=== PATIENT | male | born 1950 ===

== ENCOUNTER 2020-11-09 09:01 | Inpatient (IN) | payer MEDICARE ==
[~2020-11-09] VITALS: Ht 177.8 cm; Wt 104.1 kg
[2020-11-27] VITALS (12 sets, daily range): BP systolic 94–152; BP diastolic 61–86; PULSE 71–97; TEMP 97.3–98.5
[2020-11-27] MEDS ORDERED: FLOMAX 0.40.4 MG/CAP PO ×2 (05:49→13:11)
[2020-11-27] MEDS ORDERED: AZOR 5 MG-40 MG1 TAB PO (05:49)
[2020-11-27] MEDS ORDERED: TENORMIN 5050 MG/TAB PO (05:49)
--- NOTE | 2020-11-27 06:15 | NUR ---
Patient arrived to [facility] for admission at 0530. He is alert and oriented. His procedure is confirmed. He denies any questions and verbalizes understanding. [facility] is contacted regarding COVID-19 test result and the result is faxed and placed on our chart, reading COVID NOT DETECTED from 11/23/20. Patient changes to his gown independently. He is given a warm blanket for comfort. PIV is started in his left wrist, #18 gauge, x1 attempt, no complications. A type and screen re-type is drawn and lab collects the specimen. Pre-op medications are scanned and given. Breath sounds are clear bilaterally to auscultation. Clear S1S2 heart tones are heard with regular rate noted. PERRLA noted, +2 pupils bilaterally. Equal principal consulting engineer strength bilaterally. +2 radial pulses bilaterally. He denies any pain, numbness, or tingling. Call light usage is taught and within reach.
[2020-11-27] MEDS ORDERED: PRILOSEC 20MG20 MG PO (13:11)
--- NOTE | 2020-11-27 19:00 | NUR ---
Pt currently back in bed. Pt ambulated down the [address]. Pt stated that he has been able to pass a little gas. Pt has his call light within reach.
--- NOTE | 2020-11-27 19:21 | NUR ---
Patient up in chair, He ambulated halls. Urine output improving. was notifed x2 today. Fluid bolus had been ordered & given. Patient main complaint today has been his right eye feeling scratch, he reports that pain has improved, aware. Estrada drain with minimal output. He has tolerated clears without nausea. Eras protocol followed. Bedside report to Fara
[2020-11-28 00:44] VITALS: BP 112/67; PULSE 72; TEMP 97.8
--- NOTE | 2020-11-28 01:00 | NUR ---
Pt is currently sleeping in bed. Pt did wake up when it was time for him to take his scheduled medications. Pt urine out put has improved. Pt has his call light within reach and his bed is in lowest position.
[2020-11-28 04:30] VITALS: BP 111/60; PULSE 65; TEMP 97.7
[2020-11-28 06:28] LABS: HEMATOCRIT 40.4 % (42.0-52.0); HEMOGLOBIN 13.4 g/dl (13.5-18.0)
[2020-11-28 06:42] LABS: CALCIUM 8.7 mg/dL (8.4-10.2); CREATININE, serum 0.86 (0.66-1.25); POTASSIUM 4.4 mmol/L (3.4-5.0)
--- NOTE | 2020-11-28 07:10 | NUR ---
Pt is currently in bed. Pt has been complaing of pain this morning. He stated that he doesn't think that the Tylenol will help with the pain .Pt was given Ultram this morning to see if this helps with his pain. His incisions look clean dry and intact this morning. The incision above his belly button is bruised but no drainage noted. SHANNON drain is still intact and draining bloody drainage. Pt has his call light within reach.
[2020-11-28 08:07] VITALS: BP 114/81; PULSE 68; TEMP 97.7
--- NOTE | 2020-11-28 09:16 | NUR ---
PATIENT SHIFT ASSESSMENT COMPLETED AT THIS TIME. PATIENT APPEARS TO BE IN ALOT OF DISCOMFORT. PATIENT REPORTS THE PAIN IS CONSTANT WITH INTERMITTENT SHARP PAINS THAT CAUSE THE PATIENT TO JUMP IN BED. WARM BLANKET APPLIED TO ABDOMEN. PRN PO PAIN MEDICATION GIVEN. PATIENT REPORTING PASSING FLATUS. ABDOMEN IS DISTENDED. ABDOMINAL LAP SITES CONTRACTING ENGINEER WITH EDGES WELL APPROXIMATED. SHANNON DRAIN TO BULB SUCTION. CALL LIGHT WITHIN REACH. PATIENT DENIES ANY NEEDS AT THIS TIME.
--- NOTE | 2020-11-28 11:05 | NUR ---
PATIENTS IV TO INT. ABDOMINAL SHANNON DRAIN DISCONTINUED PER ORDERS. PATIENT TOLERATED WELL. PATIENT REPORTING PAIN HAS IMPROVED SIGNIFICANTLY AFTER THE OXYCODONE. PATIENT REPORTS IMMEDIATE RELIEF WITH SHANNON DRAIN REMOVAL. WILL CONTINUE TO MONITOR.
[2020-11-28 11:28] VITALS: BP 111/82; PULSE 65; TEMP 97.8
--- NOTE | 2020-11-28 15:20 | NUR ---
PATIENT DENYING ANY COMPLAINTS OF PAIN THIS AFTERNOON. PATIENT REPORTS THAT HE'S READY TO GO HOME IF POSSIBLE. NOTIFIED AND UPDATED ON PATIENT. TORB TO DISCHARGE PATIENT HOME WITH CATHETER CARE. TAKE IBUPROFEN AND TYLENOL NEEDED FOR PAIN. HAVE PATIENT TAKE OVER THE COUNTER STOOL SOFTNER. PATIENT MAY SHOWER TOMORROW. TO CALL AND CHECK-UP ON PATIENT TOMORROW, FROM TO THIS NURSE.
--- NOTE | 2020-11-28 15:42 | NUR ---
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 Patient reports that his son is currently home with his and will leave on monday. Son Karl is care support temporarily. Patient reports that his pcp is Chidi Ac and Agata Khan. Patient sasha having any DME use and does not believe he will need any additional care support. Will cotinue to follow care.
--- NOTE | 2020-11-28 15:47 | NUR ---
LEFT HAND INT DISCONTINUED PER PENDING DISCHARGE. TIP INTACT. PATIENT TOLERATED WELL.
--- NOTE | 2020-11-28 16:45 | NUR ---
[facility] CATHETER CARE PROVIDED AND REVIEWED WITH PATIENT. STAT LOCK ADJUSTED ON RIGHT THIGH. YARBROUGH BAG CHANGED TO LEG BAG PRIOR TO DISCHARGE. DISCHARGE INSTRUCTIONS REVIEWED WITH PATIENT. QUESTIONS SOUGHT AND ANSWERED. PATIENT PERSONAL BELONGINGS GATHERED. AWAITING ARRIVAL OF RIDE FOR DISCHARGE.
--- NOTE | 2020-11-28 16:55 | NUR ---
PATIENT BELONGINGS GATHERED. PATIENT TAKEN TO PERSONAL VEHICLE VIA WHEELCHAIR BY SURGICAL STAFF. PATIENT DISCHARGED.
== END 2020-11-28 16:55 | disposition home or self-care (01) | DRG 708 ==
LOC: INPTSU 11-27 05:17 → SURG 11-27 07:30
PROVIDERS: ADMIT Urology
PROC: 07BC4ZZ Excision of Pelvis Lymphatic, Percutaneous Endoscopic Approach (ICD-10-PCS; 2020-11-27)
PROC: 8E0W4CZ Robotic Assisted Procedure of Trunk Region, Percutaneous Endoscopic Approach (ICD-10-PCS; 2020-11-27)
PROC: 0VT04ZZ Resection of Prostate, Percutaneous Endoscopic Approach (ICD-10-PCS; principal; 2020-11-27 07:30)
DX: C61 Malignant neoplasm of prostate (principal); N99.0 Postprocedural (acute) (chronic) kidney failure
CPT/HCPCS: A4314; A9284; J0690; J1100; J1170; J1650; J1885; J2250; J2405; J2704; J3010; J7030; J7040; J7120